=== PATIENT | male | born 1965 | race Caucasian/White ===

== ENCOUNTER → 2020-10-18 18:39 | Outpatient (CLI) | payer BC, SELFPAY ==
[2020-10-18 19:58] LABS: Alanine Aminotransferase 21 U/L (12-78); Albumin/Globulin Ratio 1.3 (1.1-1.8); Alkaline Phosphatase 97 U/L (38-126); Anion Gap 15.2 mEq/L (5-15); Aspartate Amino Transferase 21 U/L (17-59); Bilirubin,Total 0.3 mg/dl (0.2-1.3); Blood Urea Nitrogen 13 mg/dl (9-20); Calcium 9.3 mg/dl (8.4-10.2); Carbon Dioxide 25 mmol/L (22.0-30.0); Chloride 104 mmol/L (98-107); Chol/HDL Ratio 6.4 (1-3.5); Cholesterol 174 mg/dl (140-200); Estimated Glomerular Filt Rate 88 ml/min (>60); GFR (African American) 106 ML/MIN (>60); Glucose 109 mg/dl (74-100); HDL Cholesterol 27 mg/dl (40-60); Potassium 4.2 mmoL/L (3.5-5.1); Sodium 140 mmol/L (136-145); Triglycerides 225 mg/dl (30-150); VLDL Cholesterol 45 mg/dL (0-40)
[2020-10-18 20:08] LABS: Direct LDL Cholesterol 116.67 mg/dL (100-129)
[2020-10-18 20:28] LABS: Prostate Specific Ag Screen 0.8 ng/ml (0.0-4.0)
== END ==
PROVIDERS: Visit Provider Family Medicine
DX: R53.83 Other fatigue (principal); Z13.220 Encounter for screening for lipoid disorders; Z12.5 Encounter for screening for malignant neoplasm of prostate
CPT/HCPCS: 80053; 80061; G0103

== ENCOUNTER → 2021-06-04 09:22 | Outpatient (CLI) | payer BC, SELFPAY | PROVIDERS: Visit Provider Surgery | DX: Z01.812 Encounter for preprocedural laboratory examination (principal); Z11.52 Encounter for screening for COVID-19; Z12.11 Encounter for screening for malignant neoplasm of colon | CPT/HCPCS: C9803; U0003; U0005 ==

== ENCOUNTER 2021-06-07 09:39 | Day surgery (SDC) | payer BC, SELFPAY ==
[2021-06-06 08:56] VITALS: BMI 30.5
[2021-06-07] VITALS (8 sets, daily range): BP systolic 101–143; BP diastolic 60–81; PULSE 73–94; RESP 16–20; TEMP 36.3–36.6; O2SAT 90–100
--- NOTE | 2021-06-07 10:12 | HMH.ANESCL ---
[facility] Anesthesia Checklist - Patient Identification Patient Identification: Arm Band - Structural Data Admitted From: Home Planned Operative Procedure/s: Colonoscopy Consent for Planned Operative Procedure(s) Verified: Yes - NPO Status Verified Time NPO: 07:30 (Prep) - Airway Assessment C-Spine Mobility Assessed: Yes TMJ Mobility Assessed: Yes Dentition: Edentulous - Neurological Assessment Level of Consciousness: Awake Hx Seizures: No Numbness or tingling in extremities: No - Anesthesia Plan Anesthesia Risk discussed: Yes Anesthesia Plan: Verified ASA Class: II Anesthesia Type: MAC [facility] History I have reviewed the patient's past medical history: Yes Medical History: Reports:: Gastroesophageal Reflux Disease(GERD) Denies:: Cancer, Diabetes Mellitus Type 1, Diabetes Mellitus Type 2, Internal Pacemaker, MRSA, Seizures *Have you ever received a pneumonia vaccine?: No *Have you received a flu vaccine this season?: Yes Anesthesia experience/problems:: None Other Surgeries: Yes: Other. No: Pacemaker Amputation: No Fractures: Yes (jaw fracture) - *Social History Last grade of school completed: High school graduate Smoking Status: Current every day smoker Tobacco Type: cigarettes # Packs/Day (cigarettes): 1 Alcohol Intake: never Substance Use Type: denies use *Occupational Status:: employed Housing: house Household Members: spouse *Travel in the last 8 weeks: None Family Hx:: Unable to obtain
--- NOTE | 2021-06-07 10:21 | P.PCN_ITS ---
- Procedure: Date: 06/07/21 Patient Date of :: 1965 Procedure Performed:: Colonoscopy with polypectomy Indications:: History of colon polyps Recent episode of colitis Performing Provider:: Alec Lopez MD Referring Provider:: Dr. Fraire Sedation:: Monitored anesthesia care Procedure:: After informed consent was obtained the patient was taken to the endoscopy suite. Sedation ensued after the patient was transferred to the left lateral decubitus position. Pulse, blood pressure, and oxygen saturation were monitored throughout the procedure. Digital rectal exam revealed no significant abnormality. The colonoscope was placed in position. The entire colon was evaluated. The colonoscope was carefully removed and the patient was transferr ed to recovery in stable condition. Please see findings and specimens below for detail. Findings:: Bowel preparation fair Fairly significant spasticity/lack of relaxation Hemorrhoidal cushions Small focus of inflammatory change at 20 cm Scattered sigmoid diverticulosis Polyps (see specimens) Specimens:: Small cecal polyp (cold biopsy forceps) Polyp at 25 cm (cold snare) Focal inflammation at 20 cm (cold biopsy forceps) Adjacent polyps at 12 cm (cold snare) Recommendations:: Timing of repeat colonoscopy is pending pathology but will likely be between 1-2 years secondary to history of significant polyps and spasticity/tortuosity. Complications:: No immediate Estimated blood obtained (mL): 1
== END 2021-06-07 12:10 | disposition home or self-care (01) ==
LOC: OUTP 09:42
PROVIDERS: PCP Family Medicine; Visit Provider Surgery
PROC: 0DJD8ZZ Inspection of Lower Intestinal Tract, Via Natural or Artificial Opening Endoscopic (ICD-10-PCS; CPT 45385; principal; 2021-06-07 10:30)
DX: Z12.11 Encounter for screening for malignant neoplasm of colon (principal); Z86.010 Personal history of colon polyps; Z87.19 Personal history of other diseases of the digestive system; K64.9 Unspecified hemorrhoids; K63.5 Polyp of colon; K21.9 Gastro-esophageal reflux disease without esophagitis; E66.9 Obesity, unspecified; Z68.30 Body mass index [BMI] 30.0-30.9, adult; Z88.0 Allergy status to penicillin; Z88.1 Allergy status to other antibiotic agents
CPT/HCPCS: 45385; 45380